=== PATIENT | female | born 1945 | race Caucasian/White ===

== ENCOUNTER → 2017-02-03 | Outpatient (CLI) | payer BC | END | disposition home or self-care (01) | LOC: PCVCIMAG 13:44 | PROVIDERS: ATTEND Internal Medicine Cardiovascular Disease | DX: I25.10 Atherosclerotic heart disease of native coronary artery without angina pectoris (principal); E11.9 Type 2 diabetes mellitus without complications; I10 Essential (primary) hypertension; E78.00 Pure hypercholesterolemia, unspecified; Z95.5 Presence of coronary angioplasty implant and graft | CPT/HCPCS: 80061; 93005; 93306; G0463 ==

== ENCOUNTER → 2017-11-16 | Outpatient (CLI) | payer BC ==
[~2017-11-16] MED LIST: AMINOPHYLLINE 250 MG/10 ML VIAL.; REGADENOSON 0.4 MG/5 ML DISP.SYRIN. IV
== END | disposition home or self-care (01) ==
LOC: PCVCIMAG 09:03
DX: I25.10 Atherosclerotic heart disease of native coronary artery without angina pectoris (principal); E11.9 Type 2 diabetes mellitus without complications; I10 Essential (primary) hypertension; E78.5 Hyperlipidemia, unspecified; Z95.5 Presence of coronary angioplasty implant and graft
CPT/HCPCS: 78452; 93017; A9500; J0280; J2785

== ENCOUNTER → 2018-08-17 | Outpatient (CLI) | payer BC ==
--- NOTE | 2018-08-17 12:11 | PCVCIMAG ---
APPROVED REPORT Study performed: 08/17/2018 10:07:47 EXAM: Comprehensive 2D, Doppler, and color-flow Echocardiogram Patient Location: Echo lab Room #: 2Status: routine BSA: 1.78 HR: 70 bpmBP: 144/66 mmHg Rhythm: NSR Other Information Study Quality: Adequate Indications Diabetes CAD Hypertension/HDD HX: Stent RCA 2D Dimensions IVSd: 7.04 (7-11mm)LVOT Diam: 19.33 (18-24mm) LVDd: 48.87 mm PWd: 6.60 (7-11mm)Ascending Ao: 29.21 (22-36mm) LVDs: 28.23 (25-40mm) Left Atrium: 32.22 (27-40mm) Aortic Root: 25.68 mm LV Single Plane 4CH: 60.10 % LV Single Plane 2CH: 70.32 % Biplane EF: 65.8 % Volumes Left Atrial Volume (Systole) Single Plane 4CH: 72.66 mLSingle Plane 2CH: 90.65 mL Biplane LA Volume: 87.00 mLLA ESV Index: 49.00 mL/m2 Aortic Valve AoV Peak Branden.: 1.26 m/s AO Peak Gr.: 6.35 mmHgLVOT Max P.47 mmHg LVOT Max V: 0.79 m/s RADHA Vmax: 1.83 cm2 Mitral Valve E/A Ratio: 1.2 MV Decel. Time: 176.70 ms MV E Max Branden.: 0.86 m/s MV A Branden.: 0.72 m/s MV PHT: 51.24 ms IVRT: 98.62 ms Pulmonary Valve PV Peak Branden.: 0.68 m/sPV Peak Gr.: 1.86 mmHg Pulmonary Vein P Vein S: 0.76 m/sP Vein A: 0.30 m/s P Vein D: 0.48 m/sP Vein A Dur.: 100.3 msec P Vein S/D Ratio: 1.58 Tricuspid Valve TR Peak Branden.: 2.85 m/s TR Peak Gr.: 32.46 mmHg TV Vmax: 0.53 m/sPA Pressure: 39.00 mmHg Left Ventricle The left ventricle is normal size. There is normal LV segmental wall motion. There is normal left ventricular wall thickness. Left ventricular systolic function is normal. The left ventricular ejection fraction is within the normal range. LVEF is 60-65%. The left ventricular diastolic function is normal. Right Ventricle The right ventricle is normal size. The right ventricular systolic function is normal. Atria Left atrium is severely dilated. Right atrium is mildly dilated. Aortic Valve Aortic valve is trileaflet. No aortic regurgitation is present. There is no aortic valvular stenosis. Mitral Valve The mitral valve is normal in structure. Trace to mild mitral regurgitation. No evidence of mitral valve stenosis. Tricuspid Valve The tricuspid valve is normal in structure. Mild tricuspid regurgitation with a PA pressure of 39 mmHg. Mild pulmonary hypertension. Pulmonic Valve The pulmonary valve is normal in structure. There is no pulmonic valvular regurgitation. Great Vessels The aortic root is normal in size. The ascending aorta is normal in size. IVC is not well visualized. Pericardium There is no pericardial effusion. There is no pleural effusion. <Conclusion> The left ventricle is normal size. LVEF is 60-65%. The right ventricular systolic function is normal. Left atrium is severely dilated. Right atrium is mildly dilated. Aortic valve is trileaflet. Trace to mild mitral regurgitation. Mild tricuspid regurgitation with a PA pressure of 39 mmHg. Mild pulmonary hypertension. The aortic root is normal in size. There is no pericardial effusion.
== END | disposition home or self-care (01) ==
LOC: PCVCIMAG 10:01
PROVIDERS: ATTEND Internal Medicine Cardiovascular Disease
DX: I25.10 Atherosclerotic heart disease of native coronary artery without angina pectoris (principal); I10 Essential (primary) hypertension; E10.8 Type 1 diabetes mellitus with unspecified complications; Z95.5 Presence of coronary angioplasty implant and graft
CPT/HCPCS: 93306